=== PATIENT | female | born 1985 | race American Indian/Alaskan Native ===

== ENCOUNTER 2018-04-11 07:42 | Day surgery (SDC) | payer OTHER ==
[2018-04-10 12:43] VITALS: BMI 42.9
[2018-04-11 08:06] VITALS: RESP 18
[2018-04-11] MEDS ORDERED: Propofol 10 mg/ml Inj (20 ML) ONE ×2 (09:42→10:47)
[2018-04-11] MEDS ORDERED: Midazolam 2 MG/2 ML VIAL ONE ×2 (09:42→11:00)
[2018-04-11] MEDS ORDERED: Bupivacaine 0.25% 20 ML INJ IJ ONE (09:55)
[2018-04-11] MEDS ORDERED: Lidocaine 2% MPF (5 ml) Inj ONE (09:55)
[2018-04-11] MEDS ORDERED: ceFAZolin 1 gm in NS 2 GM/200 ML BAG IVPB ONE (09:56)
[2018-04-11] MEDS ORDERED: Oxycodone/Acetaminophen 5/325 mg Tab PO PRN ×2 (11:16)
--- NOTE | 2018-04-11 11:22 | PCM.SURG1 ---
Surgeon's Initial Post Op Note - Surgeon's Notes Surgeon: Dr. Brian Pie Cutter: Dr. Sterling Santacruz PGY [address] Dr. Toribio PGY 2 Type of Anesthesia: IV Sedation, Local Anesthesia Administered By: Dr. Pang Pre-Operative Diagnosis: left foot plantar fasciitis and plantar heel spur Operative Findings: see dictation. I: 20 cc 1:1 mix 1% lido plain and 0.25% waylon plain. M: 4-0 prolene Post-Operative Diagnosis: same Operation Performed: left foot plantar fasciotomy and heel spur removal Specimen/Specimens Removed: none Estimated Blood Loss: EBL {In ML}: 0 Blood Products Given: N/A Drains Used: No Drains Post-Op Condition: Good Date of Surgery/Procedure: 04/11/18 Time of Surgery/Procedure: 11:22
[2018-04-11] MEDS ORDERED: HYDROmorphone 0.5 mg/0.5 ml ISec IVP PRN (11:27)
[2018-04-11] MEDS ORDERED: Lactated Ringer's 1,000 ML IV SCH (11:30)
[2018-04-11 13:12] VITALS: BP 118/79; PULSE 66; TEMP 97.7; O2SAT 100
--- NOTE | 2018-04-12 08:33 | OP ---
Copied To: Sterling Santacruz MD Attending MD: Mati Marcus DPM PROCEDURE DATE: 04/11/2018 SURGEON: Mati Marcus DPM MORNING SHOW HOST: Sterling Santacruz MD, PGY-1; Nemesio Toribio DPM, PGY-2. ANESTHESIA ADMINISTERED BY: Leonardo Pang CRNA ANESTHESIA: IV sedation with local anesthesia. PREOPERATIVE DIAGNOSIS: Left plantar fasciitis with painful plantar heel spur. POSTOPERATIVE DIAGNOSIS: Left plantar fasciitis with painful plantar heel spur. PROCEDURE: Left foot plantar fasciotomy with heel spur resection. INDICATIONS: The patient is a 32-year-old female with above diagnosis. The patient has exhausted all conservative treatments at this time and now requires surgical intervention. The patient signed a consent after careful explanation of risks, benefits, complications, and alternatives for surgical procedure. No guarantees were given nor implied. NPO status was confirmed prior to taking the patient to the OR. PREPARATION: The patient was brought into the operating room and placed on the operating room table in supine position. After induction of IV sedation, time-out was performed for identification of the correct patient and procedure. No tourniquet was used for the procedure. The patient received a total of 20 mL of 1:1 mixture of 0.25% Marcaine plain and 1% lidocaine plain in a local block fashion to the posterior tibial nerve and plantar medial aspect of the heel. Once local anesthesia was achieved, the left foot was then prepped and draped in a normal sterile manner. Attention was directed to the plantar aspect of the left foot where under C-arm guidance, location of the plantar heel spur was identified utilizing a spinal needle. A 1 cm linear longitudinal incision was made in the plantar medial aspect of the patient's left heel using a #10 blade. Incision was deepened through subcutaneous tissues and tissues were frayed down to the level of the heel spur and plantar fascial band. Through windshield motion of the #10 blade, the medial band of the plantar fascia was released and was confirmed by using a hemostat for remaining fibers. Next, utilizing a reciprocating rasp and under C-arm guidance, the plantar heel spur was removed. The wound was then washed with copious amounts of sterile normal saline. The skin was reapproximated and coapted utilizing #4-0 Prolene in a simple suture technique. The plantar heel was dressed with Xeroform, 4x4 gauze, xeroform, Genevieve, and Rajeev wrap. POSTOPERATIVE CONDITION: The patient tolerated the anesthesia and procedure well and was escorted to the recovery room with vital signs stable and neurovascular status intact to the left leg. The patient will follow up with Dr. Marcus. Sterling Santacruz MD Mati Marcus DPM MTDAdina
== END 2018-04-11 13:25 | disposition home or self-care (01) ==
LOC: C.SDS 07:42
PROVIDERS: ATTEND Podiatrist Foot & Ankle Surgery
DX: M77.31 Calcaneal spur, right foot (principal); M72.2 Plantar fascial fibromatosis
CPT/HCPCS: 28008; 97116; 97161; G8978; G8979; G8980; J0690; J2250; J2704; J3010